=== PATIENT | female | born 1970 ===

== ENCOUNTER 2023-10-13 19:06 | Inpatient (IN) | payer MEDICARE, BC, SELFPAY ==
--- NOTE | ~2023-10-13 | CT_ITS ---
CT of the Abdomen and Pelvis: Indication: Inguinal infection Technique: 2.5 mm axial scans were obtained through the abdomen and pelvis following intravenous adm inistration of 100 cc of Omnipaque 350. Dose reduction technique was used on this scan by utilizing a utomated exposure control and iterative reconstruction technique. The dose-length product (DLP) was 7 84.82 mGy-cm. Findings: Scans through the lung bases are unremarkable. The liver, spleen, pancreas, gallbladder, adrenals and kidneys are within normal limits. Aortobiiliac stent graft in place. No lymphadenopathy. No bowel obstruction or bowel wall thickening. There is no evidence to suggest acute appendicitis. Images through the pelvis were performed. Urinary bladder unremarkable. Status post hysterectomy. No pelvic mass seen. No ascites. There is an open wound at the anterior subcutaneous soft tissues of the left inguinal region, with as sociated 5.4 x 3.3 x 6.1 cm fluid collection, compatible with abscess. There surrounding mildly enlar ged left inguinal lymph nodes, compatible with reactive lymphadenopathy. Impression: 5.4 x 3.3 x 6.1 cm abscess in the anterior subcutaneous soft tissues the left inguinal region with ov erlying open wound. There is surrounding reactive lymphadenopathy in the left inguinal region. Aortobiiliac stent graft in place. Reviewed, dictated and finalized at location . Impression: 5.4 x 3.3 x 6.1 cm abscess in the anterior subcutaneous soft tissues the left i nguinal region with overlying open wound. There is surrounding reactive lymphad enopathy in the left inguinal region. Aortobiiliac stent graft in place.
[2023-10-13 19:11] VITALS: BP 135/98; PULSE 93; RESP 20; TEMP 36.6; O2SAT 100
[2023-10-14] VITALS (9 sets, daily range): BP systolic 105–124; BP diastolic 48–79; PULSE 62–88; RESP 16–18; TEMP 36.4–36.9; O2SAT 96–100
[2023-10-14 00:38] LABS: Basophils Absolute Auto 0.1 K/mm3 (0.0-0.1); Basophils Percent Auto 0.3 % (0.2-1.2); Eosinophils Absolute Auto 0.3 K/mm3 (0-0.3); Eosinophils Percent Auto 1.8 % (0-4.4); Hematocrit 36.8 % (37.0-47.0); Hemoglobin 12.3 g/dL (12.0-15.0); Immature Granulocyte Absolute 0.06 K/mm3 (0.00-0.031); Immature Granulocyte Percent A 0.4 % (0-0.5); Lymphocytes Absolute Auto 2.24 K/mm3 (0.9-3.2); Lymphocytes Percent Auto 15.3 % (18.3-44.2); Mean Corpuscular HGB Conc 33.4 g/dl (32-36); Mean Corpuscular Hemoglobin 29.6 pg (26-34); Mean Corpuscular Volume 88.7 fl (80-100); Mean Platelet Volume 9.9 fl (7.4-10.4); Monocytes Absolute Auto 0.7 K/mm3 (0.1-0.6); Monocytes Percent Auto 4.4 % (2.6-8.5); Neutrophils Absolute Auto 11.4 K/mm3 (1.3-6.7); Neutrophils Percent Auto 77.8 % (45.5-73.1); Platelet Count Result 248 k/mm3 (150-375); Red Blood Count 4.15 M/mm3 (4.2-5.4); Red Cell Distribution Width 13.3 % (11.5-14.5); White Blood Count 14.6 K/mm3 (4.5-10.0)
[2023-10-14] MEDS: methylPREDNISolone SOD SUCC 125 MG VIAL IV PUSH (00:38)
[2023-10-14] MEDS: diphenhydrAMINE HCl INJ 50 MG/ML VIAL IV PUSH (00:38)
--- NOTE | 2023-10-14 00:43 | ED.GENADULT ---
HPI - General Adult General Chief complaint: Wound/Laceration Stated complaint: left groin wound from previous stent placement Time Seen by Provider: 10/13/23 23:53 History of Present Illness HPI narrative: Patient is a 53-year-old female who presents to the emergency department this evening complaining of left inguinal wound infection. Patient states that she has peripheral vascular disease and on the 16 of September she underwent peripheral vascular surgery where a stent was placed in the wound into her right groin. Patient states that within the past few days she has noticed that the area in her left inguinal region has started to become more painful and now is draining pustular material. Patient had the surgery performed in [facility] and is currently visiting here until the 21 of October. She denies any fevers or chills at home. Admits that in addition to the drainage she has been noticing increased pain in her left lower inguinal region. Patient saw her surgeon on the 22 of September and at that time there was small area of wound dehiscence which the surgeon wanted her to follow up with the wound care clinic as an outpatient patient but patient states her appointment is not until October 22 the day after she gets back to [place]. No additional symptoms or concerns at this time. Related Data Allergies Allergy/AdvReac Type Severity Reaction Status Date / Time IV DYE, IODINE CONTAINING Allergy Uncoded 10/01/12 09:41 CONTRAST Review of Systems Review of Systems: All systems are reviewed and are negative unless stated otherwise in the HPI. Exam Narrative: General: Alert, awake, afebrile, in no acute distress. HEENT: PERRL, no rhinorrhea, no post nasal drip, oropharynx clear. Cardiovascular: Regular rate and rhythm, no murmurs, rubs or gallops, no peripheral edema. Respiratory: Clear to auscultation bilaterally, no tachypnea, no wheezing, no rhonchi, no rubs, no respiratory distress. Abdomen: Soft, nontender, nondistended, no rebound, no guarding, no peritoneal signs. Musculoskeletal: No joint swelling or deformity, normal muscle tone. Skin: Right inguinal wound dehiscence with pustular drainage and surrounding erythema concerning for infection. Neurological: Alert and oriented to person, place, and time. Follows all commands. No focal deficits, speech is clear and fluent. Course Vital Signs Vital signs: Vital Signs Temperature 97.9 F 10/13/23 19:11 Pulse Rate 93 10/13/23 19:11 Respiratory Rate 20 10/13/23 19:11 Blood Pressure 135/98 H 10/13/23 19:11 Pulse Oximetry 100 10/13/23 19:11 Oxygen Delivery Room Air 10/13/23 19:11 Temperature 97.9 F 10/13/23 19:11 Pulse Rate 67 10/14/23 04:00 Respiratory Rate 18 10/14/23 04:00 Blood Pressure 108/79 10/14/23 04:00 Pulse Oximetry 96 10/14/23 04:00 Oxygen Delivery Room Air 10/13/23 19:11 Medical Decision Making MDM Narrative Medical decision making narrative: The patient was evaluated by myself in the emergency department. History is obtained from patient who is an independent historian and physical exam was performed. External medical records were reviewed at this time. IV was established and pertinent tests were ordered. Patient was administered 15 mg of IV Toradol for pain. Patient states that she is allergic to contrast dye but has done well after being treated with steroids and Benadryl and the past. At this time 125 mg of IV Solu-Medrol and 50 mg IV Benadryl were administered for contrast media prep. Laboratory results obtained revealing a leukocytosis of 14.6, ESR of 109, C-reactive protein of 7.9, and mild transaminitis with an AST of 41 and ALT of 39. Patient was started on IV vancomycin at this time to cover her for cellulitis with abscess. Imaging studies obtained included CT abdomen pelvis with IV contrast which was independently interpreted by me revealing a 5.4 x 3.3 x 6 more months cm abscess in the an
[2023-10-14 00:50] LABS: Alanine Aminotransferase 39 U/L (6-35); Albumin Level 4.2 g/dL (3.5-5.1); Alkaline Phosphatase 222 U/L (38-126); Anion Gap 11 mmol/L (4-12); Aspartate Amino Transferase 41 U/L (14-36); Bilirubin,Total 0.6 mg/dL (0.2-1.3); Blood Urea Nitrogen 13 mg/dL (7-17); Calcium 9.1 mg/dL (8.4-10.2); Carbon Dioxide 29 mmol/L (22-30); Chloride 100 mmol/L (98-107); Estimated CRCL calculation 60 ml/min; Estimated Glomerular Filt Rate 58; Glucose 105 mg/dL (65-110); Potassium 3.4 mmol/L (3.4-5.0); Sodium 140 mmol/L (137-145)
[2023-10-14 00:52] LABS: CRP 7.9 mg/dL (<1.0)
[2023-10-14] MEDS: KETOROLAC 15 MG/ML VIAL (*BKC) IV PUSH (00:53)
[2023-10-14 01:06] LABS: Erythrocyte Sedimentation Rate 109 mm/hr (0-20)
[2023-10-14] MEDS: VANCOMYCIN 1,500 MG/NS 500 ML 1,500 MG/500 ML BAG 250 MG IVPB ×2 (02:08→19:41)
[2023-10-14] MEDS: MORPHINE SULFATE (*CRX) 4 MG/ML INJ IV PUSH (05:48)
--- NOTE | 2023-10-14 07:35 | PC.NURSE ---
Pt wound to right groin dressed as charted. Pt rates pain 5. Pedal pulse bilateral palp plus 3. IP room received.
--- NOTE | 2023-10-14 08:24 | ADMGEN ---
This patient, Deya Elam, was admitted to Medical Room 342-01. Patient/family oriented to hospital policies and general routines including ID bracelet, bed and alarms, visiting hours, pain management, procedures, bathroom and other care routines, personal items, smoking policy, room service/diet, and visiting hours. Information on how to activate the Rapid Response Team has been discussed. Patient/Family are encouraged to report perceived risks to care and to ask questions if they do not understand what they are told or what they should do.
[2023-10-14] MEDS: HYDROmorphone HCL INJ (*CRX) 1 MG/ML SYR 0.5 MG IV PUSH ×4 (10:06→21:39)
--- NOTE | 2023-10-14 11:03 | PM.CNGS ---
Assessment and Plan Assessment and plan (1) Abscess of skin and subcutaneous tissue: Code(s): L02.91 - Cutaneous abscess, unspecified Status: Acute Assessment and Plan: The patient presents CT evidence of an abscess in the subcutaneous tissue of the left inguinal area measuring up to 6.1 cm. She recently had a left lower extremity stent almost 4 weeks ago through her left groin. She has been dealing with an open wound where they gained vascular access since nearly a week postop with new onset of pain/tenderness and purulent drainage in the past few days. Her vascular surgery was in [place] and she is visiting this area until next week when she returns home. On exam, there is a 4.5 x 4 cm open wound in the left groin that is open and draining. There is significant induration in this area and tenderness. I discussed the case with Dr. Worrell. Will continue IV antibiotics for now and keep her NPO. I have also ordered wound cultures. Will decide further plan of care after his evaluation. (2) History of vascular surgery: Code(s): Z98.890 - Other specified postprocedural states Status: Acute Assessment and Plan: Left lower extremity stent on September 16 in [place] through left groin access. (3) Anticoagulant long-term use: Code(s): Z79.01 - director long term care (current) use of anticoagulants Status: Acute Assessment and Plan: On Plavix and low dose Xarelto with a recent left lower extremity stent. (4) Type 2 diabetes mellitus: Code(s): E11.9 - Type 2 diabetes mellitus without complications Status: Acute (5) Tobacco abuse: Code(s): Z72.0 - Tobacco use Status: Acute Plan I have discussed the patient's case and plan of care with Dr. Worrell. History of Present Illness Consult details Consult date: 10/14/23 Reason for consult: other (Left inguinal abscess) Requesting physician: Joel Olsen MD Narrative: This is a 53-year-old female with a history of type 2 diabetes, hyperlipidemia, and peripheral vascular disease status post multiple stent placements. She lives in [place] and had an aortobiiliac stent placed about 3 years ago. She reports since then having a peripheral stent placed in her leg almost yearly. On 09/17/2023, she had a left lower extremity stent placed through a sheath in her left groin. She reports following up with the surgeon about a week postop and had wound dehiscence. At that time, it did not appear infected and she was instructed to do dry dressing changes. She travel to this area to see family and over the past few days, she developed pain and drainage from the left groin wound. No fever or chills. She reports copious amounts of purulent-appearing drainage that would soak through her clothes. She presented to the ED overnight for evaluation. Vital signs were stable and she was afebrile in the ED. Labs showed a white blood cell count of 14,600. CT scan of the abdomen and pelvis showed a 5.4 x 3.3 x 6.1 cm abscess in the anterior subcutaneous soft tissues of the left inguinal region with overlying open wound and surrounding reactive lymphadenopathy in the left inguinal region. Our service was consulted by the ED physician for the left inguinal abscess. She was admitted to the hospitalist service and started on IV vancomycin. Blood cultures pending. She is now seen on the medical floor. Review of Systems Review of Systems: All systems reviewed & are unremarkable except as noted in HPI and below PMFSH Past Medical History Medical History Anxiety and depression Hyperlipidemia Peripheral vascular disease PTSD (post-traumatic stress disorder) Tobacco abuse Type 2 diabetes mellitus Surgical History Surgical History (Updated 10/14/23 @ 11:17 by CIRA Arrington) History of vascular surgery Aortobiiliac stent placed around 2020 Multiple lower extremity stents placed, most recently on 09/16
--- NOTE | 2023-10-14 11:17 | PM.IMHP ---
H&P: HPI History of Present Illness Date/Time: 10/14/23 11:17 Chief Complaint: left groin wound Narrative: This is a 53-year-old female with a significant past medical history of anxiety, depression, hyperlipidemia, posttraumatic stress disorder since 2014, 1 pack per day current smoker, type 2 diabetes mellitus, overactive bladder presents to the hospital for evaluation of left groin wound from previous stent placement. Patient underwent a peripheral vascular surgery with stent placement on September 16 of this year in [place]. She had complication with wound dehiscence a few days after the procedure and was supposed to follow up in a wound clinic on an outpatient basis, however her appointment is not until October 22 when she gets back into town. Of note, patient lives in [place] and is visiting until October 21. She states that the wound has been draining for the past 3 weeks and she has been putting dressings on it routinely. About 7-10 days ago she started having increased pain in the area of the wound. She called the surgery team and they put her on [place] which was not giving her much relief. She then stated that the wound became more painful and was oozing purulent drainage and decided to come to the ER for further evaluation. She denies any fever, chills, nausea, vomiting, diarrhea, abdominal pain, chest pain, or shortness of breath. She rates her pain as moderate to severe. Workup in the hospital included an abdomen pelvis CT which shown a 5.4 x 3.3 x 6.1 cm abscess in the anterior subcutaneous soft tissue of the left inguinal root region with overlying open wound, surrounding reactive lymphadenopathy in the left inguinal region, aortobiiliac stent graft in place. Initial labs showed a white blood cell count of 14.4, ESR 109, AST 41, ALT 39, alk-phos 222, C-reactive protein 7.9. Blood cultures were obtained and are pending. Patient was given pain medications, Solu-Medrol, Benadryl, and started on vancomycin while in the ED. Review of Systems Review of Systems: All systems reviewed & are unremarkable except as noted in HPI and below Constitutional: Constitutional: Reports as per HPI and Reports no additional constitutional complaints Eyes: Eyes: Reports as per HPI and Reports no additional eye complaints ENT: Reports system reviewed and no additional complaints, except as documented and Reports as per HPI Cardiovascular: Cardiovascular: Reports as per HPI and Reports no additional cardiovascular complaints Respiratory: Respiratory: Reports as per HPI and Reports no additional respiratory complaints Gastrointestinal: Gastrointestinal: Reports as per HPI and Reports no additional gastrointestinal complaints Genitourinary: Genitourinary: Reports no additional female genitourinary complaints and Reports as per HPI Musculoskeletal: Musculoskeletal: Reports no additional musculoskeletal complaints and Reports as per HPI Integumentary/Breasts: Skin/Breast: Reports system reviewed and no additional complaints, except as docu and Reports as per HPI Neurologic: Reports system reviewed and no additional complaints, except as documented and Reports as per HPI Psychiatric: Psychiatric: Reports no additional psychiatric complaints and Reports as per HPI PMFSH Past Medical History Medical History Anxiety and depression Hyperlipidemia Hypertension Insomnia Overactive bladder Peripheral vascular disease PTSD (post-traumatic stress disorder) Thyroid nodule Tobacco abuse Type 2 diabetes mellitus Surgical History Surgical History H/O elbow surgery H/O: hysterectomy History of x4 History of carpal tunnel release History of melanoma excision History of vascular surgery Aortobiiliac stent placed around 2020 Multiple lower extremity stents placed, most recently on 09/17/23 in [place] Social History Social History
--- NOTE | 2023-10-14 12:39 | ECG_ITS ---
Test Date: 2023-10-14 13:48:17 Measurements Intervals [place] Rate: 69 P: 64 CO: 160 QRS: 39 QRSD: 80 T: 28 QT: 430 QTc: 463 Interpretive Statements SINUS RHYTHM WITH MARKED SINUS ARRHYTHMIA LOW QRS VOLTAGE IN PRECORDIAL LEADS BORDERLINE ST-T WAVE ABNORMALITY- INFERIOR LEADS BASELINE ARTIFACT- I, II, III, AVR, AVL, AVF, V1 BORDERLINE ECG No previous ECG available for comparison Electronically Signed On 10-14-2023 13:56:55 CDT by Young Florentino D.O.
[2023-10-14] MEDS: ceFAZolin 1 GM/NS 50 ML 1 GM/50 ML BAG IVPB ×2 (13:27→21:32)
--- NOTE | 2023-10-14 16:36 | PC.NURSE ---
RN took patient's pillbox down to pharmacy for verification of medications.
[2023-10-14 16:59] LABS: Glucose Point of Care 303 mg/dl (65-105)
--- NOTE | 2023-10-14 17:53 | PHAR ---
HOME MED: BELSOMRA 15 MG; WHITE, OVAL TABLET, IMPRINT OF 325 OF ONE SIDE AND IMPRINT OF THE [employer] LOGO ON THE OTHER. VERIFIED BY PHARMACY.
[2023-10-14] MEDS: metFORMIN HCL 500 MG TABLET PO (17:56)
--- NOTE | 2023-10-14 18:00 | PHAR ---
DRUG NAME: BELSOMRA INGREDIENTS: SUVOREXANT -- 15 MG COLOR: WHITE SHAPE: OVAL IMPRINT CODE DESCRIPTION: THE TABLETS ARE DEBOSSED WITH THE [employer] LOGO ON ONE SIDE AND 325 ON THE OTHER SIDE.
[2023-10-14 19:52] LABS: Glucose Point of Care 201 mg/dl (65-105)
[2023-10-14] MEDS: ATORVASTATIN 40 MG TABLET PO (21:28)
[2023-10-14] MEDS: LOSARTAN POTASSIUM 50 MG TABLET PO (21:28)
[2023-10-14] MEDS: glipiZIDE 5 MG TABLET 10 MG PO (21:28)
[2023-10-14] MEDS: oxyBUTYnin CHLORIDE XL 5 MG TAB.ER.24 15 MG PO (21:28)
[2023-10-14] MEDS: ESCITALOPRAM OXALATE 10 MG TABLET 20 MG PO (21:28)
[2023-10-14] MEDS: QUEtiapine FUMARATE 100 MG TABLET 400 MG PO (21:30)
[2023-10-14] MEDS: ALPRAZolam (*CRX) 0.5 MG TABLET 2 MG PO (21:32)
[2023-10-14 21:51] LABS: Glucose Point of Care 195 mg/dl (65-105)
[2023-10-15] VITALS (15 sets, daily range): BP systolic 100–137; BP diastolic 56–83; PULSE 49–83; RESP 11–23; TEMP 36.1–36.5; O2SAT 92–100
[2023-10-15] MEDS: HYDROmorphone HCL INJ (*CRX) 1 MG/ML SYR 0.5 MG IV PUSH ×5 (01:54→21:13)
[2023-10-15] MEDS: ceFAZolin 1 GM/NS 50 ML 1 GM/50 ML BAG IVPB ×3 (05:21→21:07)
[2023-10-15 06:07] LABS: Hematocrit 35.9 % (37.0-47.0); Hemoglobin 11.7 g/dL (12.0-15.0); Mean Corpuscular HGB Conc 32.6 g/dl (32-36); Mean Corpuscular Hemoglobin 29.3 pg (26-34); Platelet Count Result 259 k/mm3 (150-375); Red Blood Count 3.99 M/mm3 (4.2-5.4); Red Cell Distribution Width 13.2 % (11.5-14.5); White Blood Count 11.6 K/mm3 (4.5-10.0)
[2023-10-15 06:19] LABS: Anion Gap 8 mmol/L (4-12); Blood Urea Nitrogen 15 mg/dL (7-17); Calcium 9.1 mg/dL (8.4-10.2); Carbon Dioxide 29 mmol/L (22-30); Chloride 104 mmol/L (98-107); Estimated CRCL calculation 60 ml/min; Estimated Glomerular Filt Rate 58; Glucose 88 mg/dL (65-110); Magnesium 2.1 mg/dL (1.6-2.3); Potassium 3.8 mmol/L (3.4-5.0); Sodium 141 mmol/L (137-145)
--- NOTE | 2023-10-15 07:43 | P.PNIM_ITS ---
Progress Note: A&P Assessment and Plan (1) Abscess of skin and subcutaneous tissue: Code(s): L02.91 - Cutaneous abscess, unspecified Status: Acute Assessment and Plan: 10/14/23: * CT of the abdomen pelvis showed a 5.4 x 3.3 x 6.1 cm abscess in the anterior subcutaneous soft tissue of the left inguinal region with overlying open wound, surrounding reactive lymphadenopathy in the left inguinal region. * White blood cell count 14.6 * Blood cultures obtained * Wound culture ordered * General surgery contacted * Continue vancomycin, will also start Cefazolin * NPO after midnight for surgery in the morning 10/15/23: * Surgery scheduled for today * WBC 11.6 * Blood cultures showing no growth to date on preliminary read * Wound culture pending * General surgery following (2) History of vascular surgery: Code(s): Z98.890 - Other specified postprocedural states Status: Acute Assessment and Plan: 10/14/23: * Recent placement of left lower extremity stent about 4 weeks ago with complication of wound dehiscence. She was suppose to follow up with a wound clinic but first appointment is dated for 10/23/23. Now CT scan today showing abscess. Original procedure was done in [place] where she resides. * Will hold Xarelto for pending surgery * Will continue Plavix per General surgery recommendation 10/15/23: * No change to treatment plan (3) Type 2 diabetes mellitus: Code(s): E11.9 - Type 2 diabetes mellitus without complications Status: Chronic Assessment and Plan: 10/14/23: * Blood sugars 105 * Will obtain Hgb A1C * Accu checks AC/HS * Low dose SSI ordered * hypoglycemic protocol in place * Diabetic diet ordered * continue Glipizide and metformin * Ozempic on hold 10/15/23: * Hgb A1C pending * Continue with current treatment plan (4) Anxiety and depression: Code(s): F41.9 - Anxiety disorder, unspecified; F32.A - Depression, unspecified Status: Chronic Assessment and Plan: 10/14/23: * Patient has post traumatic stress disorder and is on quite a few psych medications including insomnia medications * EKG shown QTc 463 * Will place telemetry considering the polypharmacy and that she will be going to surgery tomorrow * Abilify and Lexapro restarted 10/15/23: * Will touch base with Dr. Mills regarding her psych and insomnia medications (5) Hyperlipidemia: Code(s): E78.5 - Hyperlipidemia, unspecified Status: Chronic Assessment and Plan: 10/14/23: * Continue atorvastatin 10/15/23: * No change to current treatment plan (6) Tobacco abuse: Code(s): Z72.0 - Tobacco use Status: Acute Assessment and Plan: 10/14/23: * Nicotine patch ordered 10/15/23: * No change to current treatment plan (7) Hypertension: Code(s): I10 - Essential (primary) hypertension Status: Acute Assessment and Plan: 10/14/23: * Blood pressure ranging 114/70-120/72 * continue Losartan 10/15/23: * No change to current treatment plan Time Spent With Patient Time with patient: 25 - 35 minutes Subjective Date/time seen: 10/15/23 07:43 Interval history: Interval history: This is a 53-year-old female with a significant past medical history of anxiety, depression, hyperlipidemia, posttraumatic stress disorder since 2014, 1 pack per day current smoker, type 2 diabetes mellitus, overactive bladder presents to the hospital for evaluation of left groin wound from previous stent placement. Jamir rodgers
--- NOTE | 2023-10-15 07:43 | PM.IMPN ---
Progress Note: A&P Assessment and Plan (1) Abscess of skin and subcutaneous tissue: Code(s): L02.91 - Cutaneous abscess, unspecified Status: Acute Assessment and Plan: 10/14/23: CT of the abdomen pelvis showed a 5.4 x 3.3 x 6.1 cm abscess in the anterior subcutaneous soft tissue of the left inguinal region with overlying open wound, surrounding reactive lymphadenopathy in the left inguinal region. White blood cell count 14.6 Blood cultures obtained Wound culture ordered General surgery contacted Continue vancomycin, will also start Cefazolin NPO after midnight for surgery in the morning 10/15/23: Surgery scheduled for today WBC 11.6 Blood cultures showing no growth to date on preliminary read Wound culture pending General surgery following (2) History of vascular surgery: Code(s): Z98.890 - Other specified postprocedural states Status: Acute Assessment and Plan: 10/14/23: Recent placement of left lower extremity stent about 4 weeks ago with complication of wound dehiscence. She was suppose to follow up with a wound clinic but first appointment is dated for 10/23/23. Now CT scan today showing abscess. Original procedure was done in [place] where she resides. Will hold Xarelto for pending surgery Will continue Plavix per General surgery recommendation 10/15/23: No change to treatment plan (3) Type 2 diabetes mellitus: Code(s): E11.9 - Type 2 diabetes mellitus without complications Status: Chronic Assessment and Plan: 10/14/23: Blood sugars 105 Will obtain Hgb A1C Accu checks AC/HS Low dose SSI ordered hypoglycemic protocol in place Diabetic diet ordered continue Glipizide and metformin Ozempic on hold 10/15/23: Hgb A1C pending Continue with current treatment plan (4) Anxiety and depression: Code(s): F41.9 - Anxiety disorder, unspecified; F32.A - Depression, unspecified Status: Chronic Assessment and Plan: 10/14/23: Patient has post traumatic stress disorder and is on quite a few psych medications including insomnia medications EKG shown QTc [address] telemetry considering the polypharmacy and that she will be going to surgery tomorrow Abilify and Lexapro restarted 10/15/23: Will touch base with Dr. Mills regarding her psych and insomnia medications (5) Hyperlipidemia: Code(s): E78.5 - Hyperlipidemia, unspecified Status: Chronic Assessment and Plan: 10/14/23: Continue atorvastatin 10/15/23: No change to current treatment plan (6) Tobacco abuse: Code(s): Z72.0 - Tobacco use Status: Acute Assessment and Plan: 10/14/23: Nicotine patch ordered 10/15/23: No change to current treatment plan (7) Hypertension: Code(s): I10 - Essential (primary) hypertension Status: Acute Assessment and Plan: 10/14/23: Blood pressure ranging 114/70-120/72 continue Losartan 10/15/23: No change to current treatment plan Time Spent With Patient Time with patient: 25 - 35 minutes Subjective Date/time seen: 10/15/23 07:43 Interval history: Interval history: This is a 53-year-old female with a significant past medical history of anxiety, depression, hyperlipidemia, posttraumatic stress disorder since 2014, 1 pack per day current smoker, type 2 diabetes mellitus, overactive bladder presents to the hospital for evaluation of left groin wound from previous stent placement. Patient underwent a peripheral vascular surgery with stent placement on September 16 of this year in [place]. She had complication with wound dehiscence a few days after the procedure and was supposed to follow up in a wound clinic on an outpatient basis, however her appointment is not until October 22 when she gets back into town. Of note, patient lives in [place] and is visiting until October 21. She states that the wound has been draining for the past 3 weeks and she has been putting dressings on it ro
[2023-10-15 08:37] LABS: Glucose Point of Care 70 mg/dl (65-105)
[2023-10-15] MEDS: ARIPiprazole 5 MG TABLET 15 MG PO (08:44)
[2023-10-15] MEDS: TRIHEXYPHENIDYL HCL 2 MG TABLET PO (08:44)
[2023-10-15] MEDS: DEXTROSE 50% 25 GM/50 ML SYRINGE IV PUSH ×4 (08:50→14:35)
[2023-10-15 09:26] LABS: Prothrombin Time 13.6 Seconds (11.1-14.7)
[2023-10-15 09:27] LABS: Partial Thromboplastin Time 26.2 Seconds (22.3-36.8)
[2023-10-15 09:34] LABS: Glucose Point of Care 113 mg/dl (65-105)
--- NOTE | 2023-10-15 10:57 | WPDHPUPDATE1 ---
History and Physical Update Update Date/Time: 10/15/23 10:57 History and Physical has been reviewed, including an updated exam of the patient. There are NO changes in the patient's condition. Risks, benefits, and alternatives have been discussed and questions answered. Patient agrees to proceed with procedure.
[2023-10-15 12:11] LABS: Glucose Point of Care 57 mg/dl (65-105)
[2023-10-15 12:36] LABS: Glucose Point of Care 112 mg/dl (65-105)
[2023-10-15] MEDS: LACTATED RINGERS 1,000 ML 30 ML IV CONT ×2 (13:10→14:28)
--- NOTE | 2023-10-15 13:17 | WPDANESEPPF ---
Anes - Initial Pre Proc Eval Procedure: Operation Date: 10/15/23 14:00 Proposed Procedures p Complex Incision,Drainage And Debridement Left Groin Wound - Merary Worrell MD Date/Time: 10/15/23 13:17 Surgeon: Joel Olsen MD Pre Op Diagnosis: left inguinal subcutaneous abcess/wound debridemen Patient Data Age: 53 Gender: F Height: 1.63 m Weight: 81 kg Last Vital Signs Temp 36.4 C L 10/15/23 06:00 Pulse 62 10/15/23 06:00 Resp 20 10/15/23 06:00 BP 137/83 10/15/23 06:00 Pulse Ox 100 10/15/23 06:00 O2 Del Method Room Air 10/14/23 14:05 Allergies Allergy/AdvReac Type Severity Reaction Status Date / Time IV DYE, IODINE CONTAINING Allergy Swelling Uncoded 10/15/23 13:07 CONTRAST Home Medications Medication Instructions Recorded Confirmed Type albuterol sulfate 90 mcg/actuation 1 - 2 puff inhalation PRN asthma 10/14/23 10/14/23 History aerosol inhaler alprazolam 2 mg tablet 2 mg PO TID PRN Anxiety 10/14/23 10/14/23 History aripiprazole 15 mg tablet 15 mg PO QHS 10/14/23 10/14/23 History atorvastatin 40 mg tablet 40 mg PO QHS 10/14/23 10/14/23 History clopidogrel 75 mg tablet 75 mg PO QHS 10/14/23 10/14/23 History escitalopram oxalate 20 mg tablet 20 mg PO QHS 10/14/23 10/14/23 History eszopiclone 3 mg tablet 3 mg PO PRN PRN Insomnia 10/14/23 10/14/23 History glipizide 10 mg tablet 10 mg PO QHS 10/14/23 10/14/23 History losartan 50 mg tablet 50 mg PO QHS 10/14/23 10/14/23 History metformin 500 mg tablet 500 mg PO BID 10/14/23 10/14/23 History oxybutynin chloride 15 mg 15 mg PO QHS 10/14/23 10/14/23 History tablet,extended release 24 hr quetiapine 400 mg tablet 400 mg PO QHS PRN Insomnia 10/14/23 10/14/23 History rivaroxaban 2.5 mg tablet (Xarelto) 2.5 mg PO QHS 10/14/23 10/14/23 History suvorexant 15 mg tablet (Belsomra) 15 mg PO QHS PRN Insomnia 10/14/23 10/14/23 History thiothixene 10 mg capsule 10 mg PO QHS 10/14/23 10/14/23 History trihexyphenidyl 2 mg tablet 2 mg PO DAILY 10/14/23 10/14/23 History vilazodone 40 mg tablet 40 mg PO DAILY 10/14/23 10/14/23 History Laboratory Tests 10/14/23 10/14/23 10/14/23 16:55 19:36 21:39 WBC RBC Hgb Hct MCV MCH MCHC RDW Plt Count MPV PT INR APTT Sodium Potassium Chloride Carbon Dioxide Anion Gap BUN Creatinine Estim Creat Clear Calc Estimated GFR Glucose POC Capillary Glucose 303 H mg/dl 201 H mg/dl 195 H mg/dl (65-105) (65-105) (65-105) Hemoglobin A1c Calcium Magnesium 10/15/23 10/15/23 10/15/23 05:23 08:34 09:10 WBC 11.6 H K/mm3 (4.5-10.0) RBC 3.99 L M/mm3 (4.2-5.4) Hgb 11.7 L g/dL (12.0-15.0) Hct 35.9 L % (37.0-47.0) MCV 90.0 fl (80-100) MCH 29.3 pg (26-34) MCHC 32.6 g/dl (32-36) RDW 13.2 % (11.5-14.5) Plt Count 259 k/mm3 (150-375) MPV 10.0 fl (7.4-10.4) PT 13.6 Seconds (11.1-14.7) INR 1.0 APTT 26.2 Seconds (22.3-36.8) Sodium 141 mmol/L (137-145) Potassium 3.8 mmol/L (3.4-5.0) Chloride 104 mmol/L (98-107) Carbon Dioxide 29 mmol/L (22-30) Anion Gap 8 mmol/L (4-12) BUN 15 mg/dL (7-17) Creatinine 1.00 mg/dL (0.7-1.0) Estim Creat Clear Calc 60 ml/min Estimated GFR 58 L (59 - ) Glucose 88 mg/dL (65-110) POC Capillary Glucose 70 mg/dl (65-105) Hemoglobin A1c Pending Calcium 9.1 mg/dL (8.4-10.2) Magnesium 2.1 mg/dL (1.6-2.3) 10/15/23 10/15/23 10/15/23 09:30 12:08 12:34
[2023-10-15 13:49] LABS: Glucose Point of Care 115 mg/dl (65-105)
[2023-10-15 13:49] LABS: Glucose Point of Care 70 mg/dl (65-105)
[2023-10-15] MEDS: VANCOMYCIN 1,500 MG/NS 500 ML 1,500 MG/500 ML BAG 250 MG IVPB (14:01)
--- NOTE | 2023-10-15 14:27 | W.PM.PROC2 ---
Procedure Note - Detailed Date of Procedure 10/15/23 Pre-op Diagnosis Left groin wound with abscess Post-op Diagnosis Same Procedure Performed Debridement left groin wound with complex incision and drainage abscess, wound measuring 7 x 6 x 6 cm Surgeon Merary Worrell MD Anesthesia General Indications 53-year-old female with complex left groin wound with abscess status post vascular procedure approximately 1 month ago Findings Necrotic left groin wound with underlying abscess measuring 7 x 6 x 6 cm Description of Procedure The patient was taken the operating room and placed in the supine position. After adequate induction of general anesthesia, the patient was prepped and draped in the normal sterile fashion. A time-out was then done to verify the patient's identity, as well as the procedure being performed. There was noted to be a large open wound with necrotic tissue in the left groin. I began by exploring this wound bluntly with a hemostat. I then began to debride some necrotic tissue using sharp dissection with a 15 blade scalpel and the Metzenbaum scissors. At the posterior inferior portion of the wound there was noted to be a fluctuant area. I opened this area sharply and a large amount of purulent drainage was noted. I then was able to explore this cavity bluntly and further loculations were broken up and drained. Once all the tissue was debrided back to healthy, viable tissue the cavity measured a 7 x 6 x 6 cm. I gained hemostasis with the Bovie cautery. The wound was copiously irrigated. No other pathology or drainable collections were noted. I then packed the wound with 1 in iodoform to keep the area open and draining. The patient tolerated the procedure well and is extubated in the operating room postoperatively. She will be transferred to the recovery room in stable condition. Estimated Blood Loss 5 Drains No Packing Yes Pathology None sent Complications No immediate complications Condition Stable Disposition PACU [facility] Billing Surgery - Charge Forward: Surgery Billing
[2023-10-15 14:35] LABS: Glucose Point of Care 65 mg/dl (65-105)
--- NOTE | 2023-10-15 14:45 | SUR.PHASEI ---
Patient blood glucose 65 when taken in PACU at 1433. MD Oneil ordered 12.5 of D50 IV push.
[2023-10-15 14:59] LABS: Glucose Point of Care 102 mg/dl (65-105)
[2023-10-15] MEDS: fentaNYL CITRATE INJ (*CRX) 100 MCG/2 ML VIAL 25 MCG IV PUSH ×2 (15:00→15:11)
--- NOTE | 2023-10-15 15:48 | PC.NURSE ---
Patient returned from OR per bed.
[2023-10-15 17:11] LABS: Glucose Point of Care 184 mg/dl (65-105)
[2023-10-15] MEDS: metFORMIN HCL 500 MG TABLET PO (18:42)
[2023-10-15 19:57] LABS: Glucose Point of Care 334 mg/dl (65-105)
[2023-10-15 20:50] LABS: Hemoglobin A1C 6.4 % (<5.7)
[2023-10-15] MEDS: ALPRAZolam (*CRX) 0.5 MG TABLET 2 MG PO (21:07)
[2023-10-15] MEDS: ESCITALOPRAM OXALATE 10 MG TABLET 20 MG PO (21:07)
[2023-10-15] MEDS: glipiZIDE 5 MG TABLET 10 MG PO (21:07)
[2023-10-15] MEDS: LOSARTAN POTASSIUM 50 MG TABLET PO (21:07)
[2023-10-15] MEDS: ATORVASTATIN 40 MG TABLET PO (21:08)
[2023-10-15] MEDS: CLOPIDOGREL BISULFATE 75 MG TABLET PO (21:08)
[2023-10-15] MEDS: oxyBUTYnin CHLORIDE XL 5 MG TAB.ER.24 15 MG PO (21:08)
[2023-10-15] MEDS: QUEtiapine FUMARATE 100 MG TABLET 400 MG PO (21:08)
[2023-10-15] MEDS: INSULIN ASPART (*BKC) 100 UNITS/ML SUB-Q (21:18)
[2023-10-16] VITALS (10 sets, daily range): BP systolic 117–124; BP diastolic 61–75; PULSE 55–71; RESP 16–18; TEMP 35.5–36.5; O2SAT 96–98
[2023-10-16] MEDS: HYDROmorphone HCL INJ (*CRX) 1 MG/ML SYR 0.5 MG IV PUSH ×3 (00:34→07:36)
[2023-10-16] MEDS: ceFAZolin 1 GM/NS 50 ML 1 GM/50 ML BAG IVPB (05:07)
[2023-10-16 07:11] LABS: Anion Gap 5 mmol/L (4-12); Blood Urea Nitrogen 14 mg/dL (7-17); Calcium 8.8 mg/dL (8.4-10.2); Carbon Dioxide 32 mmol/L (22-30); Chloride 106 mmol/L (98-107); Estimated CRCL calculation 66 ml/min; Estimated Glomerular Filt Rate > 60; Glucose 63 mg/dL (65-110); Magnesium 2.1 mg/dL (1.6-2.3); Potassium 4.3 mmol/L (3.4-5.0); Sodium 143 mmol/L (137-145)
[2023-10-16 07:22] LABS: Vancomycin Trough 11.9 ug/mL (10.0-20.0)
[2023-10-16 07:43] LABS: Hematocrit 36.7 % (37.0-47.0); Hemoglobin 11.6 g/dL (12.0-15.0); Mean Corpuscular HGB Conc 31.6 g/dl (32-36); Mean Corpuscular Hemoglobin 29.1 pg (26-34); Mean Platelet Volume 10.2 fl (7.4-10.4); Platelet Count Result 284 k/mm3 (150-375); Red Blood Count 3.99 M/mm3 (4.2-5.4); Red Cell Distribution Width 13.4 % (11.5-14.5); White Blood Count 10.9 K/mm3 (4.5-10.0)
[2023-10-16 08:18] LABS: Glucose Point of Care 70 mg/dl (65-105)
[2023-10-16] MEDS: TRIHEXYPHENIDYL HCL 2 MG TABLET PO (08:36)
[2023-10-16] MEDS: ARIPiprazole 5 MG TABLET 15 MG PO (08:36)
[2023-10-16] MEDS: VANCOMYCIN 1,500 MG/NS 500 ML 1,500 MG/500 ML BAG 250 MG IVPB (08:40)
[2023-10-16] MEDS: HYDROcodone/acetaminophen (*CRX) 10-325 MG TABLET 1 TAB PO ×4 (09:08→21:24)
--- NOTE | 2023-10-16 10:35 | P.PNIM_ITS ---
Progress Note: A&P Assessment and Plan (1) Abscess of skin and subcutaneous tissue: Code(s): L02.91 - Cutaneous abscess, unspecified Status: Acute Assessment and Plan: 10/14/23: * CT of the abdomen pelvis showed a 5.4 x 3.3 x 6.1 cm abscess in the anterior subcutaneous soft tissue of the left inguinal region with overlying open wound, surrounding reactive lymphadenopathy in the left inguinal region. * White blood cell count 14.6 * Blood cultures obtained * Wound culture ordered * General surgery contacted * Continue vancomycin, will also start Cefazolin * NPO after midnight for surgery in the morning 10/15/23: * Surgery scheduled for today * WBC 11.6 * Blood cultures showing no growth to date on preliminary read * Wound culture pending * General surgery following 10/16/23: * patient is postop day 1 from a debridement of the left groin wound with complex incision and drainage of abscess measuring 7 x 6 x 6 cm. Large amount of purulent drainage noted after opening abscess with a few loculated areas that were broke up * white blood cell count today is 10.9 * continue pain control * blood cultures showing no growth to date on preliminary read * The wound culture showing MRSA * continue IV vancomycin (2) History of vascular surgery: Code(s): Z98.890 - Other specified postprocedural states Status: Acute Assessment and Plan: 10/14/23: * Recent placement of left lower extremity stent about 4 weeks ago with complication of wound dehiscence. She was suppose to follow up with a wound clinic but first appointment is dated for 10/23/23. Now CT scan today showing abscess. Original procedure was done in [place] where she resides. * Will hold Xarelto for pending surgery * Will continue Plavix per General surgery recommendation 10/15/23: * No change to treatment plan (3) Type 2 diabetes mellitus: Code(s): E11.9 - Type 2 diabetes mellitus without complications Status: Chronic Assessment and Plan: 10/14/23: * Blood sugars 105 * Will obtain Hgb A1C * Accu checks AC/HS * Low dose SSI ordered * hypoglycemic protocol in place * Diabetic diet ordered * continue Glipizide and metformin * Ozempic on hold 10/15/23: * Hgb A1C pending * Continue with current treatment plan 10/16/23: * hemoglobin A1c 6.4 * patient had hypoglycemic episode this morning, blood sugar 63 * will hold metformin and glipizide * continue low-dose sliding scale with meals only * tobacco educator consulted * dietitian consult (4) Anxiety and depression: Code(s): F41.9 - Anxiety disorder, unspecified; F32.A - Depression, unspecified Status: Chronic Assessment and Plan: 10/14/23: * Patient has post traumatic stress disorder and is on quite a few psych medications including insomnia medications * EKG shown QTc 463 * Will place telemetry considering the polypharmacy and that she will be going to surgery tomorrow * Abilify and Lexapro restarted 10/15/23: * Will touch base with Dr. Mills regarding her psych and insomnia medications 10/16/23: * Call placed to Dr. Mills and medications were verified - vilazodone, Wellbutrin, Lunesta were all stopped as she no longer takes these medications according to her psychologist - she will be continued on Lexapro, Belsomra, Seroquel, thiothixene, trihexyphenidyl, and Abilify (5) Hyperlipidemia: Code(s): E78.5 - Hyperlipidemia, unspecified Status: Chronic Assessment and Plan: 10/14/23: * Continue atorvastatin
--- NOTE | 2023-10-16 10:35 | PM.IMPN ---
Progress Note: A&P Assessment and Plan (1) Abscess of skin and subcutaneous tissue: Code(s): L02.91 - Cutaneous abscess, unspecified Status: Acute Assessment and Plan: 10/14/23: CT of the abdomen pelvis showed a 5.4 x 3.3 x 6.1 cm abscess in the anterior subcutaneous soft tissue of the left inguinal region with overlying open wound, surrounding reactive lymphadenopathy in the left inguinal region. White blood cell count 14.6 Blood cultures obtained Wound culture ordered General surgery contacted Continue vancomycin, will also start Cefazolin NPO after midnight for surgery in the morning 10/15/23: Surgery scheduled for today WBC 11.6 Blood cultures showing no growth to date on preliminary read Wound culture pending General surgery following 10/16/23: patient is postop day 1 from a debridement of the left groin wound with complex incision and drainage of abscess measuring 7 x 6 x 6 cm. Large amount of purulent drainage noted after opening abscess with a few loculated areas that were broke up white blood cell count today is 10.9 continue pain control blood cultures showing no growth to date on preliminary read The wound culture showing MRSA continue IV vancomycin (2) History of vascular surgery: Code(s): Z98.890 - Other specified postprocedural states Status: Acute Assessment and Plan: 10/14/23: Recent placement of left lower extremity stent about 4 weeks ago with complication of wound dehiscence. She was suppose to follow up with a wound clinic but first appointment is dated for 10/23/23. Now CT scan today showing abscess. Original procedure was done in [place] where she resides. Will hold Xarelto for pending surgery Will continue Plavix per General surgery recommendation 10/15/23: No change to treatment plan (3) Type 2 diabetes mellitus: Code(s): E11.9 - Type 2 diabetes mellitus without complications Status: Chronic Assessment and Plan: 10/14/23: Blood sugars 105 Will obtain Hgb A1C Accu checks AC/HS Low dose SSI ordered hypoglycemic protocol in place Diabetic diet ordered continue Glipizide and metformin Ozempic on hold 10/15/23: Hgb A1C pending Continue with current treatment plan 10/16/23: hemoglobin A1c 6.4 patient had hypoglycemic episode this morning, blood sugar 63 will hold metformin and glipizide continue low-dose sliding scale with meals only wire coiner consulted dietitian consult (4) Anxiety and depression: Code(s): F41.9 - Anxiety disorder, unspecified; F32.A - Depression, unspecified Status: Chronic Assessment and Plan: 10/14/23: Patient has post traumatic stress disorder and is on quite a few psych medications including insomnia medications EKG shown QTc [address] telemetry considering the polypharmacy and that she will be going to surgery tomorrow Abilify and Lexapro restarted 10/15/23: Will touch base with Dr. Mills regarding her psych and insomnia medications 10/16/23: Call placed to Dr. Mills and medications were verified - vilazodone, Wellbutrin, Lunesta were all stopped as she no longer takes these medications according to her psychologist - she will be continued on Lexapro, Belsomra, Seroquel, thiothixene, trihexyphenidyl, and Abilify (5) Hyperlipidemia: Code(s): E78.5 - Hyperlipidemia, unspecified Status: Chronic Assessment and Plan: 10/14/23: Continue atorvastatin 10/15/23: No change to current treatment plan (6) Tobacco abuse: Code(s): Z72.0 - Tobacco use Status: Acute Assessment and Plan: 10/14/23: Nicotine patch ordered 10/15/23: No change to current treatment plan (7) Hypertension: Code(s): I10 - Essential (primary) hypertension Status: Acute Assessment and Plan: 10/14/23: Blood pressure ranging 114/70-120/72 continue Losartan 10/15/23: No change to current treatment p
--- NOTE | 2023-10-16 12:21 | PM.PNGS ---
Progress Note: A&P Assessment and Plan (1) Abscess of skin and subcutaneous tissue: Code(s): L02.91 - Cutaneous abscess, unspecified Status: Acute Assessment and Plan: much improved s/p debridement and drainage, cont local wound care with wet to dry dressing BID, ok to switch to po abx, home soon, will need f/u c wound care once back home Subjective Subjective Date/Time Seen: 10/16/23 12:21 Interval history: feels better, pressure much improved, some incisional soreness Review of Systems Review of Systems: All systems reviewed & are unremarkable except as noted in HPI and below Exam Const: General: cooperative, comfortable and no acute distress Resp: Auscultation: clear to auscultation bilaterally Cardio: Rate: regular rate Rhythm: regular rhythm GI: Inspection: normal to inspection Skin: Other: L groin wound - unpacked, good drainage, cellulitis, induration much improved Objective Data Vital Signs Vital Signs: Vital Signs - 24 hr 10/15/23 13:10 10/15/23 14:28 10/15/23 14:40 Temperature 36.1 C L 36.4 C L Pulse Rate 59 L 80 77 Respiratory Rate 16 11 L 23 H Blood Pressure 100/71 104/56 L 111/69 Pulse Oximetry 99 97 100 Oxygen Delivery Room Air Simple Face Mask Simple Face Mask Oxygen Flow Rate 8 8 10/15/23 14:55 10/15/23 15:10 10/15/23 15:25 Temperature Pulse Rate 75 62 65 Respiratory Rate 21 H 19 22 H Blood Pressure 107/72 122/72 110/61 Pulse Oximetry 95 96 92 Oxygen Delivery Room Air Room Air Room Air Oxygen Flow Rate 10/15/23 15:58 10/15/23 16:04 10/15/23 20:52 Temperature 36.4 C L 36.5 C Pulse Rate 70 83 74 Respiratory Rate 18 20 Blood Pressure 113/79 129/80 Pulse Oximetry 96 95 Oxygen Delivery Oxygen Flow Rate 10/15/23 20:00 10/15/23 20:00 10/16/23 00:00 Temperature Pulse Rate 66 64 Respiratory Rate Blood Pressure Pulse Oximetry Oxygen Delivery Room Air Oxygen Flow Rate 10/16/23 00:38 10/16/23 04:00 10/16/23 06:11 Temperature 36.5 C 36.3 C L Pulse Rate 55 L 71 57 L Respiratory Rate 18 18 Blood Pressure 122/75 117/68 Pulse Oximetry 98 97 Oxygen Delivery Oxygen Flow Rate 10/16/23 07:29 Temperature Pulse Rate Respiratory Rate Blood Pressure Pulse Oximetry 96 Oxygen Delivery Room Air Oxygen Flow Rate Intake/Output Intake/Output: Intake & Output 10/13/23 10/14/23 10/15/23 10/16/23 23:59 23:59 23:59 23:59 Intake Total 2120 990 770 Balance 2120 990 770 Meds/Results Medications: Active Medications Generic Name Dose Route Start Last Admin Trade Name Freq PRN Reason Stop Dose Admin Hydrocodone Bitart/Acetaminophen 1 tab 10/16/23 08:19 Hydrocodone/Acetaminophen (*Crx) 5-325 Mg Tablet PO Q4H PRN Pain Rated 4-6 Hydrocodone Bitart/Acetaminophen 1 tab 10/16/23 08:19 10/16/23 09:08 Hydrocodone/Acetaminophen (*Crx) 10-325 Mg Tablet PO 1 tab Q4H PRN Administration Pain Rated 7-10 Albuterol 1 - 2 puff 10/14/23 12:25 Albuterol Sulfate (*Sp) Aerosol 1 Puff INHALATION Q6HRT PRN Shortness Of Breath Or Wheezing Alprazolam 2 mg 10/14/23 12:25 10/15/23 21:07 Alprazolam (*Crx) 0.5 Mg Tablet PO 2 mg TID PRN Administration Anxiety Aripiprazole 15 mg 10/15/23 09:00 10/16/23 08:36 Aripiprazole 5 Mg Tablet PO 15 mg DAILY RICHELLE Administration Atorvastatin Calcium 40 mg 10/14/23 21:00 10/15/23 21:08 Atorvastatin 40 Mg Tablet PO 40 mg QHS RICHELLE Administration Clopidogrel Bisulfate 75 mg 10/14/23 21:00 10/15/23 21:08 Clopidogrel Bisulfate 75 Mg Tablet PO 75 mg QHS RICHELLE Administration Dextrose 12.5 gm 10/14/23 12:19 10/15/23 12:11 Dextrose 50% 25 Gm/50 Ml Syringe IV PUSH 12.5 gm PRN PRN Administration Hypoglycemia Protocol Escitalopram Oxalate 20 mg 10/14/23 21:00 10/15/23 21:07 Escitalopram Oxalate 10 Mg Tablet PO 20 mg QHS RICHELLE Administration Fentanyl Citrat
[2023-10-16 12:30] LABS: Glucose Point of Care 90 mg/dl (65-105)
--- NOTE | 2023-10-16 14:03 | WPDANESPN ---
Anes - Prog Note Post-Op Date/Time: 10/16/23 14:03 Cardiovascular status: normal Respiratory status: normal Airway patency: baseline Mental status: baseline Post-Op hydration status: normal Vital Signs: Last Vital Signs Temp 36.3 C L 10/16/23 06:11 Pulse 57 L 10/16/23 06:11 Resp 18 10/16/23 06:11 BP 117/68 10/16/23 06:11 Pulse Ox 96 10/16/23 07:29 O2 Del Method Room Air 10/16/23 07:29 O2 Flow Rate 8 10/15/23 14:40 Pain Score (VAS): 2 I/O: Intake & Output 10/15/23 10/16/23 10/16/23 23:59 07:59 15:59 Intake Total 790 530 240 Balance 790 530 240 Laboratory Tests 10/16/23 06:56 10/16/23 06:56 10/15/23 10/15/23 10/15/23 05:23 14:32 14:55 WBC RBC Hgb Hct MCV MCH MCHC RDW Plt Count MPV Sodium Potassium Chloride Carbon Dioxide Anion Gap BUN Creatinine Estim Creat Clear Calc Estimated GFR Glucose POC Capillary Glucose 65 102 Hemoglobin A1c 6.4 H Calcium Magnesium Vancomycin Trough 10/15/23 10/15/23 10/16/23 17:01 19:49 06:56 WBC 10.9 H RBC 3.99 L Hgb 11.6 L Hct 36.7 L MCV 92.0 MCH 29.1 MCHC 31.6 L RDW 13.4 Plt Count 284 MPV 10.2 Sodium 143 Potassium 4.3 Chloride 106 Carbon Dioxide 32 H Anion Gap 5 BUN 14 Creatinine 0.90 Estim Creat Clear Calc 66 Estimated GFR > 60 Glucose 63 L POC Capillary Glucose 184 H 334 H Hemoglobin A1c Calcium 8.8 Magnesium 2.1 Vancomycin Trough 11.9 10/16/23 10/16/23 08:07 12:25 WBC RBC Hgb Hct MCV MCH MCHC RDW Plt Count MPV Sodium Potassium Chloride Carbon Dioxide Anion Gap BUN Creatinine Estim Creat Clear Calc Estimated GFR Glucose POC Capillary Glucose 70 90 Hemoglobin A1c Calcium Magnesium Vancomycin Trough Microbiology 10/14/23 13:34 Other Wound Culture - Preliminary Staphylococcus aureus Post-procedural complaints: none Patient Feedback: Patient satisfied with anesthetic care.
[2023-10-16] MEDS: ACETAMINOPHEN 325 MG TABLET 650 MG PO ×2 (16:55→23:46)
[2023-10-16 17:08] LABS: Glucose Point of Care 115 mg/dl (65-105)
[2023-10-16] MEDS: ALPRAZolam (*CRX) 0.5 MG TABLET 2 MG PO (19:49)
[2023-10-16] MEDS: ESCITALOPRAM OXALATE 10 MG TABLET 20 MG PO (21:25)
[2023-10-16] MEDS: QUEtiapine FUMARATE 100 MG TABLET 400 MG PO (21:25)
[2023-10-16] MEDS: CLOPIDOGREL BISULFATE 75 MG TABLET PO (21:25)
[2023-10-16] MEDS: ATORVASTATIN 40 MG TABLET PO (21:25)
[2023-10-16] MEDS: LOSARTAN POTASSIUM 50 MG TABLET PO (21:26)
[2023-10-16 22:39] LABS: Glucose Point of Care 87 mg/dl (65-105)
[2023-10-17] MEDS: HYDROcodone/acetaminophen (*CRX) 10-325 MG TABLET 1 TAB PO ×3 (02:00→12:34)
[2023-10-17] MEDS: VANCOMYCIN 1,500 MG/NS 500 ML 1,500 MG/500 ML BAG 250 MG IVPB (02:04)
[2023-10-17 05:53] LABS: Hematocrit 37.3 % (37.0-47.0); Hemoglobin 11.9 g/dL (12.0-15.0); Mean Corpuscular HGB Conc 31.9 g/dl (32-36); Mean Corpuscular Hemoglobin 29.3 pg (26-34); Mean Corpuscular Volume 91.9 fl (80-100); Mean Platelet Volume 9.7 fl (7.4-10.4); Platelet Count Result 275 k/mm3 (150-375); Red Blood Count 4.06 M/mm3 (4.2-5.4); Red Cell Distribution Width 13.3 % (11.5-14.5); White Blood Count 7.8 K/mm3 (4.5-10.0)
[2023-10-17 06:10] LABS: Anion Gap 7 mmol/L (4-12); Blood Urea Nitrogen 11 mg/dL (7-17); Calcium 8.6 mg/dL (8.4-10.2); Carbon Dioxide 32 mmol/L (22-30); Chloride 106 mmol/L (98-107); Estimated CRCL calculation 60 ml/min; Estimated Glomerular Filt Rate 58; Glucose 100 mg/dL (65-110); Magnesium 1.9 mg/dL (1.6-2.3); Potassium 3.6 mmol/L (3.4-5.0); Sodium 145 mmol/L (137-145)
[2023-10-17] MEDS: ACETAMINOPHEN 325 MG TABLET 650 MG PO ×2 (06:13→12:30)
[2023-10-17 06:36] VITALS: BP 124/77; PULSE 57; RESP 20; TEMP 36.4; O2SAT 97
[2023-10-17] MEDS: TRIHEXYPHENIDYL HCL 2 MG TABLET PO (08:21)
[2023-10-17] MEDS: ARIPiprazole 5 MG TABLET 15 MG PO (08:21)
[2023-10-17 08:33] LABS: Glucose Point of Care 125 mg/dl (65-105)
[2023-10-17 11:05] VITALS: BMI 30.6
[2023-10-17 11:59] LABS: Glucose Point of Care 163 mg/dl (65-105)
[2023-10-17 14:00] VITALS: BP 144/86; PULSE 70; RESP 14; TEMP 36.8; O2SAT 98
--- NOTE | 2023-10-17 14:49 | PM.DS ---
DS: Admitting Diagnosis Discharge Date 10/17/23 Admitting Diagnosis Abscess of skin and subcutaneous tissue History of vascular surgery Type 2 diabetic mellitus Anxiety and depression Hyperlipidemia Tobacco abuse Hypertension DS: Discharge Diagnosis Discharge Diagnosis (1) Abscess of skin and subcutaneous tissue: Code(s): L02.91 - Cutaneous abscess, unspecified Status: Acute (2) History of vascular surgery: Code(s): Z98.890 - Other specified postprocedural states Status: Acute (3) Type 2 diabetes mellitus: Code(s): E11.9 - Type 2 diabetes mellitus without complications Status: Chronic (4) Anxiety and depression: Code(s): F41.9 - Anxiety disorder, unspecified; F32.A - Depression, unspecified Status: Chronic (5) Hyperlipidemia: Code(s): E78.5 - Hyperlipidemia, unspecified Status: Chronic (6) Tobacco abuse: Code(s): Z72.0 - Tobacco use Status: Acute (7) Hypertension: Code(s): I10 - Essential (primary) hypertension Status: Acute DS: Summary Hospital Course Reason for hospitalization: Abscess of skin and subcutaneous tissue History of vascular surgery Type 2 diabetic mellitus Anxiety and depression Hyperlipidemia Tobacco abuse Hypertension Hospital Course: This is a 53-year-old female with a significant past medical history of anxiety, depression, hyperlipidemia, posttraumatic stress disorder since 2014, 1 pack per day current smoker, type 2 diabetes mellitus, overactive bladder presents to the hospital for evaluation of left groin wound from previous stent placement. Patient underwent a peripheral vascular surgery with stent placement on September 16 of this year in [place]. She had complication with wound dehiscence a few days after the procedure and was supposed to follow up in a wound clinic on an outpatient basis, however her appointment is not until October 22 when she gets back into town. Of note, patient lives in [place] and is visiting until October 21. She states that the wound has been draining for the past 3 weeks and she has been putting dressings on it routinely. About 7-10 days ago she started having increased pain in the area of the wound. She called the surgery team and they put her on Alexis which was not giving her much relief. She then stated that the wound became more painful and was oozing purulent drainage and decided to come to the ER for further evaluation. She denies any fever, chills, nausea, vomiting, diarrhea, abdominal pain, chest pain, or shortness of breath. She rates her pain as moderate to severe. Workup in the hospital included an abdomen pelvis CT which shown a 5.4 x 3.3 x 6.1 cm abscess in the anterior subcutaneous soft tissue of the left inguinal root region with overlying open wound, surrounding reactive lymphadenopathy in the left inguinal region, aortobiiliac stent graft in place. Initial labs showed a white blood cell count of 14.4, ESR 109, AST 41, ALT 39, alk-phos 222, C-reactive protein 7.9. Blood cultures were obtained and are pending. Patient was given pain medications, Solu-Medrol, Benadryl, and started on vancomycin while in the ED. Patient went to the OR on 10/15/2023 and had a debridement of the left groin wound with complex incision and drainage of an abscess. The wound was packed with wet to dry dressing and changed by General surgery for the last 2 days. Vancomycin switched over to doxycycline for another 10 days. She is stable for discharge at this time. She will need to follow up with the Wound Clinic in [place] when she gets back. Final diagnosis: Abscess of skin and subcutaneous tissue, debridement of left groin wound with complex incision and drainage of abscess Status at Discharge Cognitive/behavioral status at discharge: Alert oriented x4 Functional status at discharge: independent ambulation Overall status at discharge: patient is progressing back to baseline Time Spent with Patient Ti
== END 2023-10-17 16:10 | disposition home or self-care (01) | DRG 603 ==
LOC: ANHED 10-14 06:55 → ANH3MED 10-14 07:24
PROVIDERS: Nurse Practitioner Family; Surgery; Admitting Provider Family Medicine; Emergency Provider Emergency Medicine; Visit Provider Nurse Practitioner Acute Care
PROC: 0J9C0ZX Drainage of Pelvic Region Subcutaneous Tissue and Fascia, Open Approach, Diagnostic (ICD-10-PCS; principal; 2023-10-15 14:00)
DX: L02.214 Cutaneous abscess of groin (principal); B95.62 Methicillin resistant Staphylococcus aureus infection as the cause of diseases classified elsewhere; I10 Essential (primary) hypertension; E78.5 Hyperlipidemia, unspecified; N32.81 Overactive bladder; F43.10 Post-traumatic stress disorder, unspecified; F41.8 Other specified anxiety disorders; F17.210 Nicotine dependence, cigarettes, uncomplicated
CPT/HCPCS: 36415; 74177; 80048; 80053; 80202; 82948; 83036; 83605; 83735; 85025; 85027; 85610; 85652; 85730; 86140; 87040; 87070; 87181; 87205; 93005; 96374; 96375; 99285; A9270; J0690; J1100; J1170; J1200; J1815; J1885; J2270; J2405; J2704; J2919; J3010; J3370; J7120; Q9967

== ENCOUNTER 2023-10-18 18:53 | Emergency (ER) | payer MEDICARE, BC, SELFPAY ==
--- NOTE | ~2023-10-18 | CT_ITS ---
Non-contrast CT scan of the Abdomen and Pelvis Clinical indication: Left lower quadrant wound Technique: 2.5 mm axial scans were obtained through the abdomen and pelvis without intravenous or or al contrast. Dose reduction technique was used on this scan by utilizing automated exposure control a nd iterative reconstruction technique. The dose-length product (DLP) was 995.05 mGy-cm. COMPARISON: 10/14/2023 Findings: Images through the lung bases reveal no abnormalities. There is no evidence of renal or ureteral calculi. The kidneys and the ureters are nondilated. The liver, spleen, pancreas, gallbladder, and adrenals appear normal. There is no aortic aneurysm. D istal abdominal aortic stent graft present, extending to the bilateral common iliac arteries. There is no evidence of bowel obstruction. Images through the pelvis were performed. There is no evidence of ascites or lymphadenopathy. Urinary bladder unremarkable. Status post hysterectomy. No pelvic mass seen. No ascites. Open wound at the left inguinal region, with subcutaneous abscess is again present, with probable int erval decrease in size of the abscess. There are shotty reactive adjacent lymph nodes. The collection in the subcutaneous soft tissues adjacent to and abutting the underlying common femoral vessels. Impression: Open left inguinal wound with underlying subjacent abscess. The abscess is probably decreased in size from prior exam. Reviewed, dictated and finalized at [facility]. Impression: Open left inguinal wound with underlying subjacent abscess. The abscess is prob ably decreased in size from prior exam.
--- NOTE | 2023-10-18 19:57 | ED.WOUNDLAC ---
HPI - Wound/Laceration General Chief Complaint: Wound/Laceration <Mary Woods PA-C - Last Filed: 10/19/23 02:33> Stated Complaint: wound to left groin. <Mary Woods PA-C - Last Filed: 10/19/23 02:33> Time Seen by Provider: 10/18/23 19:20 <Mary Woods PA-C - Last Filed: 10/19/23 02:33> History of Present Illness HPI narrative: 53-year-old female with history of hypertension, type 2 diabetes, tobacco abuse presents to the emergency department for a wound to her left groin. Patient is traveling here from [place] and had LLE stent performed on September 17, 2023. she had complication with wound dehiscence a few days after the procedure was supposed [facility], however her appointment is not until October 22 when she gets back into town. She is planning to go back to [place] on October 21. She was seen in our emergency department on 10/14/2023 for worsening pain purulent drainage from her operative site. She had a CT performed which showed a 5.4 x 3.3 x 6.1 cm abscess in the anterior subcutaneous soft tissue with an overlying open wounds. She was admitted to the hospital and went to the OR on 10/15/[address] Worrell and had debridement of the left groin wound with complex decision and drainage of an abscess. The wound was packed with wet-to-dry dressings unchanged by General surgery. The patient was discharged home with doxycycline Yesterday. She presents today with her sister and friend at bedside due to concerns that her wound has become larger since discharge and her draining has increased today. States between her dressing change this morning and this evening and has significantly increased. She describes the drainage as purulence and bloody. She is reporting pain to this region of her abdomen but this seems unchanged since when she was discharge. She denies fever, nausea or vomiting. <Mary Woods PA-C - Last Filed: 10/19/23 02:33> Related Data Home Medications: Home Medications Medication Instructions Recorded Confirmed albuterol sulfate 90 mcg/actuation 1 - 2 puff inhalation PRN asthma 10/14/23 10/14/23 aerosol inhaler alprazolam 2 mg tablet 2 mg PO TID PRN Anxiety 10/14/23 10/14/23 aripiprazole 15 mg tablet 15 mg PO QHS 10/14/23 10/14/23 atorvastatin 40 mg tablet 40 mg PO QHS 10/14/23 10/14/23 clopidogrel 75 mg tablet 75 mg PO QHS 10/14/23 10/14/23 escitalopram oxalate 20 mg tablet 20 mg PO QHS 10/14/23 10/14/23 glipizide 10 mg tablet 10 mg PO QHS 10/14/23 10/14/23 losartan 50 mg tablet 50 mg PO QHS 10/14/23 10/14/23 metformin 500 mg tablet 500 mg PO BID 10/14/23 10/14/23 quetiapine 400 mg tablet 400 mg PO QHS PRN Insomnia 10/14/23 10/14/23 rivaroxaban 2.5 mg tablet (Xarelto) 2.5 mg PO QHS 10/14/23 10/14/23 suvorexant 15 mg tablet (Belsomra) 15 mg PO QHS PRN Insomnia 10/14/23 10/14/23 trihexyphenidyl 2 mg tablet 2 mg PO DAILY 10/14/23 10/14/23 <Mary Woods PA-C - Last Filed: 10/19/23 02:33> Allergies/Adverse Reactions: Allergies Allergy/AdvReac Type Severity Reaction Status Date / Time Iodinated Contrast Media Allergy Severe Swelling Verified 10/18/23 19:34 <Mary Woods PA-C - Last Filed: 10/19/23 02:33> Review of Systems Review of Systems: All systems reviewed & are unremarkable except as noted in HPI and below <Mary Woods PA-C - Last Filed: 10/19/23 02:33> [facility] Past Medical History Medical History: Medical History Anxiety and depression Hyperlipidemia Hypertension Insomnia Overactive bladder Peripheral vascular disease PTSD (post-traumatic stress disorder) Thyroid nodule Tobacco abuse Type 2 diabetes mellitus <Mary Woods PA-C - Last Filed: 10/19/23 02:33> Surgical History Surgical History: Surgical History H/O elbow surgery H/O: hysterectomy
[2023-10-18 20:14] VITALS: BP 170/100; PULSE 90; RESP 18; TEMP 36.9; O2SAT 98
[2023-10-18 20:42] LABS: Basophils Percent Auto 0.3 % (0.2-1.2); Eosinophils Absolute Auto 0.2 K/mm3 (0-0.3); Eosinophils Percent Auto 1.6 % (0-4.4); Hematocrit 37.4 % (37.0-47.0); Hemoglobin 12.6 g/dL (12.0-15.0); Immature Granulocyte Percent A 0.9 % (0-0.5); Lymphocytes Absolute Auto 3.27 K/mm3 (0.9-3.2); Lymphocytes Percent Auto 27.8 % (18.3-44.2); Mean Corpuscular HGB Conc 33.7 g/dl (32-36); Mean Corpuscular Hemoglobin 29.7 pg (26-34); Mean Corpuscular Volume 88.2 fl (80-100); Mean Platelet Volume 9.6 fl (7.4-10.4); Monocytes Absolute Auto 0.5 K/mm3 (0.1-0.6); Monocytes Percent Auto 4.3 % (2.6-8.5); Neutrophils Absolute Auto 7.7 K/mm3 (1.3-6.7); Neutrophils Percent Auto 65.1 % (45.5-73.1); Platelet Count Result 293 k/mm3 (150-375); Red Blood Count 4.24 M/mm3 (4.2-5.4); White Blood Count 11.8 K/mm3 (4.5-10.0)
[2023-10-18 20:52] LABS: Lactic Acid Reflex 0.9 mmol/L (0.7-2.0)
[2023-10-18] MEDS: SODIUM CHLORIDE 0.9% IV 1,000 ML 999 ML IV CONT ×2 (20:54→22:05)
[2023-10-18] MEDS: MORPHINE SULFATE (*CRX) 4 MG/ML INJ IV PUSH (20:54)
[2023-10-18 21:20] LABS: Alanine Aminotransferase 28 U/L (6-35); Albumin Level 4.1 g/dL (3.5-5.1); Alkaline Phosphatase 176 U/L (38-126); Anion Gap 7 mmol/L (4-12); Aspartate Amino Transferase 29 U/L (14-36); Bilirubin,Total 0.3 mg/dL (0.2-1.3); Blood Urea Nitrogen 11 mg/dL (7-17); Calcium 8.6 mg/dL (8.4-10.2); Carbon Dioxide 31 mmol/L (22-30); Chloride 104 mmol/L (98-107); Estimated CRCL calculation 74 ml/min; Estimated Glomerular Filt Rate > 60; Glucose 99 mg/dL (65-110); Potassium 3.7 mmol/L (3.4-5.0); Sodium 142 mmol/L (137-145)
[2023-10-18 21:40] LABS: Erythrocyte Sedimentation Rate 49 mm/hr (0-20)
[2023-10-18 21:57] LABS: Appearance Urine Cloudy (Clear); Bacteria Urine None Seen /hpf; Bilirubin Urine Negative (Negative); Blood Urine Negative (Negative); Color Urine Yellow (Yellow); Glucose Urine UA Negative (Negative); Ketones Urine Negative (Negative); Leukocyte Esterase Ur 2+ LEU/UL (Negative); Nitrate Urine Negative (Negative); Non Pathogenic Casts 0-2; Protein Urine Negative (Negative); RBC Urine 0-2 /hpf (0-2); Specific Grav Ur 1.005 (1.001-1.035); Squamous Epithelial Cell Urine Many /hpf (Few); Urobilinogen Urine 0.2 mg/dL (<2.0)
[2023-10-18 21:59] LABS: Add Urine Microscopic? YES
[2023-10-18] MEDS: PIPERACILLN/TAZ 3.375GM/NS50ML 3.375 GM/50 ML BAG IVPB (22:04)
[2023-10-18] MEDS: HYDROmorphone HCL INJ (*CRX) 1 MG/ML SYR 0.5 MG IV PUSH (22:05)
[2023-10-18] MEDS: VANCOMYCIN 1,500 MG/NS 500 ML 1,500 MG/500 ML BAG 250 MG IVPB (22:28)
--- NOTE | 2023-10-18 23:45 | PC.NURSE ---
Called [facility] at [phone], not able to do any transport at this time. Called [facility] at [phone], declined do to staffing. Called [facility] at 2300, eta [phone].
[2023-10-19] MEDS: ARIPiprazole 5 MG TABLET 15 MG PO (00:07)
[2023-10-19] MEDS: ATORVASTATIN 40 MG TABLET PO (00:10)
[2023-10-19] MEDS: oxyBUTYnin CHLORIDE XL 5 MG TAB.ER.24 15 MG PO (00:10)
[2023-10-19] MEDS: TRIHEXYPHENIDYL HCL 2 MG TABLET PO (00:10)
[2023-10-19] MEDS: glipiZIDE 5 MG TABLET 10 MG PO (00:11)
[2023-10-19] MEDS: metFORMIN HCL XR 500 MG TAB.SR.24H PO (00:13)
[2023-10-19] MEDS: QUEtiapine FUMARATE 100 MG TABLET 400 MG PO (00:13)
[2023-10-19] MEDS: ESCITALOPRAM OXALATE 10 MG TABLET 20 MG PO (00:15)
[2023-10-19] MEDS: ALPRAZolam (*CRX) 0.5 MG TABLET 2 MG PO (00:18)
[2023-10-19] MEDS: LOSARTAN POTASSIUM 50 MG TABLET PO (00:18)
--- NOTE | 2023-10-19 00:22 | PC.NURSE ---
This Rn ordered all of pt at home meds she takes at home and given to her. Dr. Hernandez stated it was okay just to hold her blood thinners. lens mounter notified and verified that RN ordered correctly as well. Pt is now NPO at 00:00.
[2023-10-19 00:35] VITALS: BP 166/97; PULSE 77; RESP 18; O2SAT 97
[2023-10-19] MEDS: HYDROmorphone HCL INJ (*CRX) 1 MG/ML SYR 0.5 MG IV PUSH (01:49)
--- NOTE | 2023-10-19 02:29 | PC.NURSE ---
[facility] called at [phone], new eta is 0730.
--- NOTE | 2023-10-19 02:58 | PC.NURSE ---
[facility] called [phone] , cintia jordan 1245pm. Call [facility] at [phone] to cancel transport.
--- NOTE | 2023-10-19 03:09 | PC.NURSE ---
This Rn called [facility] to update them that ot will now be transporting via helicopter due to EMS oushing back time to take pt to [place]. This R spoke with Kalpesh at 0310 on 10/19/23
== END 2023-10-19 03:15 | disposition short-term general hospital (02) ==
PROVIDERS: Emergency Provider Physician Assistant
DX: T81.31XD Disruption of external operation (surgical) wound, not elsewhere classified, subsequent encounter (principal); T81.49XD Infection following a procedure, other surgical site, subsequent encounter; E78.5 Hyperlipidemia, unspecified; I10 Essential (primary) hypertension; E11.9 Type 2 diabetes mellitus without complications; F17.210 Nicotine dependence, cigarettes, uncomplicated; Y83.9 Surgical procedure, unspecified as the cause of abnormal reaction of the patient, or of later complication, without mention of misadventure at the time of the procedure
CPT/HCPCS: 36415; 74176; 80053; 81001; 83605; 85025; 85652; 86140; 87040; 87086; 96361; 96365; 96366; 96367; 96375; 96376; 99285; A9270; J1170; J2270; J2543; J3370; J7030